=== PATIENT | female | born 1975 | race Two or more races ===

== ENCOUNTER 2016-03-21 10:30 | Inpatient (IN) | payer BC ==
[2016-03-21] MEDS ORDERED: fentaNYL 100 MCG/2 ML INJ ONE (11:18)
[2016-03-21 11:21] LABS: % IMMATURE GRANULYOCYTES 1.1 % (0.0-1.1); ABSOLUTE IMMATURE GRANULOCYTES 0.16 10^3/uL (0.00-0.10); ADD DIFF? NO; ADD MORPH? NO; ADD SCAN? NO; ATYPICAL LYMPHOCYTE FLAG 0 (0-99); FRAGMENT RBC FLAG 0 (0-99); HEMATOCRIT 41.3 % (38.0-47.0); HEMOGLOBIN 14.9 g/dL (12.6-16.3); LEFT SHIFT FLG 0 (0-99); LIPEMIA HEMOLYSIS FLAG 90 (0-99); MEAN CELL HEMOGLOBIN 32.7 pg (27.9-34.1); MEAN CELL HEMOGLOBIN CONCENTR. 36.1 g/dL (32.4-36.7); MEAN CELL VOLUME 90.8 fL (81.5-99.8); MEAN PLATELET VOLUME 11.7 fL (8.7-11.7); PLATELET CLUMPS FLAG 20 (0-99); PLATELET COUNT 200 10^3/uL (150-400); RED BLOOD CELL COUNT 4.55 10^6/uL (4.18-5.33); RED CELL DISTRIBUTION WIDTH 13.4 % (11.5-15.2)
[2016-03-21] MEDS ORDERED: fentaNYL 100 MCG/2 ML INJ IVP ONE (11:30)
[2016-03-21] MEDS ORDERED: NALOXONE HCL 0.4 MG/ML INJ IVP PRN (11:31)
[2016-03-21] MEDS ORDERED: BUPIVACAINE 0.25% 30 ML SDV ONE (11:37)
[2016-03-21] MEDS ORDERED: LR 500 ML IV SCH (12:00)
[2016-03-21] MEDS ORDERED: fentaNYL 2MCG/ML/BUP 0.1% RTU 100 ML EP SCH (12:00)
[2016-03-21] MEDS: PHENYLEPHRINE HCL 100 MCG/ML SYR IVP PRN ×2 (12:25→12:40)
--- NOTE | 2016-03-21 12:51 | GHP ---
[f rep st] HISTORY AND PHYSICAL DATE OF ADMISSION: 03/21/2016 CHIEF COMPLAINT: Painful contractions. HISTORY OF PRESENT ILLNESS: The patient is a 40-year-old, 2, para 1 female at 39 weeks and 3 days' estimated gestational age by IVF dating, presents with painful contractions every 2-3 minutes. The patient denies any leakage of fluid or vaginal bleeding and reports good movement. The patient's history is significant for history of a prior primary low transverse section for arrest of descent, and she desires a vaginal trial of labor. Her has also been complicated by advanced maternal age over 40 with normal genetic screening and she is varicella nonimmune. She has received the flu vaccine. PAST MEDICAL HISTORY: Asthma. PAST SURGICAL HISTORY: delivery. ALLERGIES: No known drug allergies. MEDICATIONS: vitamin, folic acid, vitamin C and vitamin E. LABS: Blood type O positive, antibody screen negative, hematocrit 36, varicella nonimmune, rubella immune, RPR nonreactive, urine culture negative, hepatitis B surface antigen and HIV negative, 1-hour GTT 88, hematocrit 33 at 28 weeks, and GBS negative. heart rate tracing 130s with accelerations, no decelerations and excellent moderate variability. Tocometer contractions every 2 minutes. PHYSICAL EXAMINATION: GENERAL: Mild distress due to pain. CHEST: Clear to auscultation bilaterally. CARDIOVASCULAR: Regular rate and rhythm. ABDOMEN: Gravid and nontender. PELVIC: Cervix on admission was 4 cm, 70% effaced, and -2 station at 11 a.m. She quickly changed to 7-8 cm immediately prior to epidural. HOSPITAL COURSE: Patient was admitted and found to be 4 cm. She was having painful contractions and desired an epidural. Anesthesia was contacted and she was given fentanyl IV. Immediately prior to the epidural, she was 7-8 cm dilated. She obtained her epidural without complications and now is 8 cm, 80% effaced, and 0 station. ASSESSMENT: Patient is a 40-year-old, 2, para 1, female at 39 weeks and 3 days' estimated gestational age in active labor with history of prior delivery. PLAN: 1. status reassuring with category 1 heart rate tracing and moderate variability present. 2. History of prior delivery: Patient has been counseled, with her present and tool maintenance technician present, regarding all risks of a vaginal trial of labor after section to include risks of infection, bleeding, blood transfusion, uterine rupture with resulting increased risk of emergency delivery , and maternal morbidity and mortality. The patient indicates that she understands these risks and desires to proceed with a trial of labor. 3. For labor, the patient is progressing well. 4. GBS negative. /[id number]/MODL MTDD
--- NOTE | 2016-03-21 13:17 | OBPROG ---
OBG Progress Note Assessment/Plan: Assessment: 40 y/o at 39+3 weeks EGA in active labor, hx prior LTCS, desires : Plan: 1) Labor: Desires , risks reviewed, accepts risks. Labor progressing well , now c/c/+2. AROM w/ meconium stained fluid noted. Will notify CENTRAL SUPPLY WORKER. Waiting to start pushing until returns from cafeteria. 2) status over all reassuring. Decreased variability likely from baby sitting low in the pelvis, but great accels and moderate variability present after SVE. 3) GBS negative 4) Pain: well controlled with DANIEL. 03/21/16 13:15 Subjective: Pt comfortable with DANIEL. Objective: 03/21/16 10:59 Patient ABO/Rh O POSITIVE 03/21/16 10:59 - SVE Dilation (cm): 10 Effacement (%): 100 Station: +2 Current Contraction Pattern: Regular FHR (bpm): 130 FHR Pattern Variability: Moderate FHR Category: 2 (early decels present, minimal variability initially, but + accels with scalp stim w/ SVE) Membranes: AROM Amniotic Fluid Color: Meconium Stained-Moderate ICD10 Worksheet Patient Problems: Problems Problem Status Diagnosed History of delivery, antepartum Acute History of section, low transverse Acute Normal labor Acute - ICD10 Problem Qualifiers (1) History of section, low transverse (2) History of delivery, antepartum
[2016-03-21] MEDS ORDERED: LIDOCAINE 1% 30 ML SDV ONE (13:25)
[2016-03-21] MEDS ORDERED: AMMONIA AROMATIC 1 EACH AMP IH ONE (13:25)
[2016-03-21] MEDS ORDERED: OXYTOCIN 10 UNIT/ML VIAL ONE (14:28)
--- NOTE | 2016-03-21 15:04 | OBPROC ---
- Labor and Delivery Onset of Contractions Date: 03/21/16 Onset of Contractions Time: 07:00 Onset of Contractions Type: Spontaneous Rupture of Membranes Date: 03/21/16 Rupture of Membranes Time: 13:04 Rupture of Membranes Type: Artificial Amniotic Fluid Color: Meconium Stained-Heavy Dilation Complete Time: 13:03 Delivery Type: Spontaneous Placenta Delivery Date: 03/21/16 Placenta Delivery Time: 14:27 Episiotomy/Laceration: 2nd Degree, Other (Specify) (2nd degree laceration in the midline, did not extend fully to the perineal skin. Small bilateral labials and a small 1cm laceration bleeding below urethra - all repaired and hemostatic.) Repair: 2-0, 3-0, Vicryl EBL: 250 cc Complications: None - Medications Anesthesia: Epidural - [place] Info A Delivery Date: 03/21/16 Delivery Time: 14:23 Sex of : Male Score (1 Min): 8 Score (5 Min): 9 (Patient pushed and delivered a male in MARYJO position, no nuchal cord. Baby had a spontaneous cry and nose and oral pharynx was bulb suctioned, then baby placed on the maternal abdomen. Delayed cord clamping x 2 minutes as the baby was doing great and WELT INSOLE CHANNELER present at the bedside. Cord clamped and cut. Cord blood obtained. Placenta delivered easily and intact. Cervix and vaginal beyer intact. Midline laceration repaired with running locked stitch of 2-0 vicryl that extended into left labia ; perineal skin intact, but laceration right behind it was the depth of a 2nd degree. Small bilateral and periurethral lacerations repaired with interrupted and figure of eight stitches of 3-0 vicryl. All hemostatic. Uterine tone excellent; IV pitocin given per protocol. Mother and baby in stable and good condition.)
[2016-03-21] MEDS ORDERED: HYDROCODONE/APAP 5/325 TAB PO PRN (15:08)
[2016-03-21] MEDS ORDERED: ACETAMINOPHEN 325 MG TAB PO PRN (15:08)
[2016-03-21] MEDS ORDERED: HYDROCORTISONE 0.5% CREAM TP PRN (15:08)
[2016-03-21] MEDS ORDERED: SIMETHICONE 80 MG TAB CHEW PO PRN (15:08)
[2016-03-21] MEDS: IBUPROFEN 600 MG TAB PO PRN ×2 (16:58→22:50)
[2016-03-21] MEDS: DOCUSATE SODIUM 100 MG CAP PO PRN (22:50)
[2016-03-22] MEDS: IBUPROFEN 600 MG TAB PO PRN ×3 (06:21→20:39)
--- NOTE | 2016-03-22 08:05 | SOAPPROG ---
SOAP Progress Note Assessment/Plan: Assessment: 40 y.o. s/p day #1. Recovering well with good pain control. with assistance. Plan: Routine care. Begin Iron PO BID. Anticipate discharge to home tomorrow. 03/22/16 08:03 Subjective: Reports experiencing minimal discomfort and vaginal bleeding. with assistance. Eating and drinking well without nausea or vomiting. Has been out of bed and ambulating without vertigo. Appropriate mood and good support system. Objective: Vital Signs Temp Pulse Resp BP Pulse Ox 36.6 C 81 18 107/51 L 95 03/22/16 03:03 03/22/16 03:03 03/22/16 03:03 03/22/16 03:03 03/21/16 15:20 Laboratory Results 03/22/16 06:10 03/21/16 03/22/16 03/23/16 05:59 05:59 05:59 Output Total 700 Balance -700 - Time Spent With Patient Time Spent With Patient: 20 minutes - Pending Discharge Pending Discharge Within 24 Hours: Yes Pending Discharge Date: 03/23/16 Pending Discharge Time: 11:00 Physical Exam - Physical Exam General Appearance: WD/WN, alert, no apparent distress EENT: normal ENT inspection Neck: non-tender, full range of motion, supple, normal inspection Respiratory: lungs clear, normal breath sounds Cardiac/Chest: regular rate, rhythm Abdomen: non-tender, soft Pelvic Exam: normal external exam Rectal: deferred Back: Normal inspection Skin: normal color, warm/dry Lymphatic: no adenopathy Extremities: normal range of motion, non-tender Neuro/Psych: alert, normal mood/affect, oriented x 3 ICD10 Worksheet Patient Problems: Problems Problem Status Diagnosed History of delivery, antepartum Acute History of section, low transverse Acute Normal labor Acute
[2016-03-22] MEDS: DOCUSATE SODIUM 100 MG CAP PO PRN ×2 (08:42→19:18)
[2016-03-22] MEDS: IRON POLYSAC/IRON HEME 28 MG TAB PO SCH ×2 (08:42→20:39)
[2016-03-22 15:54] VITALS: O2SAT 96
[2016-03-22] MEDS ORDERED: EPSOM SALT 454 GM TP ONE (16:36)
[2016-03-23] MEDS: IBUPROFEN 600 MG TAB PO PRN ×2 (02:34→09:10)
--- NOTE | 2016-03-23 08:18 | SOAPPROG ---
SOAP Progress Note Assessment/Plan: Assessment: PPD#2 s/p uncomplicated . Doing well Plan: Discharge home Routine precautions given 03/23/16 08:16 Subjective: going well. No specific concerns. Bleeding appropriate. Ready to go home today. Seen by precision lens centerer and edger. Objective: Vital Signs Temp Pulse Resp BP Pulse Ox 36.8 C 85 18 114/70 96 03/22/16 20:40 03/22/16 20:40 03/22/16 20:40 03/22/16 20:40 03/22/16 20:40 Laboratory Results 03/22/16 06:10 03/22/16 03/23/16 03/24/16 05:59 05:59 05:59 Output Total 700 Balance -700 Gen: NAD, alert, awake Resp: unlabored Abd: soft, uterus firm below U Ext: no edema ICD10 Worksheet Patient Problems: Problems Problem Status Diagnosed History of delivery, antepartum Acute History of section, low transverse Acute Normal labor Acute
[2016-03-23 08:55] VITALS: BP 122/56; PULSE 78; RESP 16; TEMP 98.1
[2016-03-23] MEDS: IRON POLYSAC/IRON HEME 28 MG TAB PO SCH (09:09)
[2016-03-23] MEDS: DOCUSATE SODIUM 100 MG CAP PO PRN (09:10)
--- NOTE | 2016-03-26 12:18 | OBGCSDC ---
General Delivery Information - General Info : 2 Para: 2 Delivery Date: 03/21/16 Delivery Physician/CNM: Noa Santiago Admission Date: 03/21/16 Labs: Patient ABO/Rh O POSITIVE 03/21/16 10:59 Hct 34.7 % (38.0-47.0) L 03/22/16 06:10 - [place] Info Infant A Sex of : Male Score (1 Min): 8 Score (5 Min): 9 (Patient pushed and delivered a male infant in MARYJO position, no nuchal cord. Baby had a spontaneous cry and nose and oral pharynx was bulb suctioned, then baby placed on the maternal abdomen. Delayed cord clamping x 2 minutes as the baby was doing great and NUCLEAR PHYSICS TEACHER present at the bedside. Cord clamped and cut. Cord blood obtained. Placenta delivered easily and intact. Cervix and vaginal beyer intact. Midline laceration repaired with running locked stitch of 2-0 vicryl that extended into left labia ; perineal skin intact, but laceration right behind it was the depth of a 2nd degree. Small bilateral and periurethral lacerations repaired with interrupted and figure of eight stitches of 3-0 vicryl. All hemostatic. Uterine tone excellent; IV pitocin given per protocol. Mother and baby in stable and good condition.) Vaginal - Diagnosis Labor: Spontaneous Rupture of Membranes Type: Artificial Amniotic Fluid Color: Meconium Stained-Moderate Laceration: 2nd Degree Repair: 2-0, 3-0, Vicryl Complications: None - Operations/Procedures Delivery Type: Spontaneous Anesthesia: Epidural - Delivery EBL: 250 cc Anesthesia: Epidural Discharge Information - Discharge Information Discharge Medications: Ibuprofen, Vitamins, Vicodin Condition: Good Instruction/Follow Up: Six Weeks Discharge Physician/CNM: Jenn Edmonds Discharge Date: 03/23/16 Dictated: No
== END 2016-03-23 12:15 | disposition home or self-care (01) | DRG 775 ==
LOC: FLD 10:30
PROVIDERS: ADMIT Midwife; ATTEND Obstetrics & Gynecology
DX: O70.1 Second degree perineal laceration during delivery (principal); O71.82 Other specified trauma to perineum and vulva; O34.211 Maternal care for low transverse scar from previous cesarean delivery; O77.0 Labor and delivery complicated by meconium in amniotic fluid; O09.523 Supervision of elderly multigravida, third trimester; O09.813 Supervision of pregnancy resulting from assisted reproductive technology, third trimester; Z3A.39 39 weeks gestation of pregnancy; Z37.0 Single live birth
CPT/HCPCS: J2370; J3010

== ENCOUNTER → 2018-01-07 | Outpatient (CLI) | payer BC | LOC: FIMAGING 09:55 | PROVIDERS: ATTEND Obstetrics & Gynecology | DX: Z12.31 Encounter for screening mammogram for malignant neoplasm of breast (principal) ==